=== PATIENT | female | born 1960 | race Hispanic/Latino ===

== ENCOUNTER → 2020-02-20 | Outpatient (CLI) | payer OTHER ==
[~2020-02-20] MED LIST: LEVAQUIN750 MG PO; LINZESS PO; TYLENOL # 31 EA PO; Z.0.CIPRO500 MG; Z.0.NORCO 5-325 TA1; Z.0.PHENERGAN25 M1; Z.0.SYNTHROID50 MCG PO; [UNRECOGNIZED DRUG - OTHER]
--- NOTE | 2020-02-20 13:19 | Diagnostic Imaging Report ---
CT of the chest, without contrast, 02/20/2020. History: History of smoking. Comparison: None available. Technique: Multidetector CT scanning of the chest was performed from the level of the apices to the upper abdomen without contrast. Coronal and sagittal multiplanar reformations were obtained. RADIATION DOSE: Total DLP: 489 mGy*cm Dose modulation, iterative reconstruction, and/or weight based adjustment of the mA/kV was utilized to reduce the radiation dose to as low as reasonably achievable. Discussion: Evaluation is limited without IV contrast. Chest: The heart, aorta, and pulmonary vessels are normal in size. The thyroid is unremarkable. Calcified right hilar lymph nodes are present. There is no acute mediastinal or axillary adenopathy. Linear opacities are present in the right middle lobe, lingula, and both lower lobes. There is no evidence of consolidation, suspicious nodule, or pleural effusion. Limited evaluation of the upper abdomen shows normal adrenal glands. Gastric pablo are noted. Bones and soft tissues: No acute abnormality. Mild degenerative changes are present throughout the thoracic spine. IMPRESSION: Findings of previous granulomatous disease with bilateral scattered atelectasis. No acute or suspicious pulmonary abnormality. Signed by: Joss Markham on 02/20/2020 1:16 PM
== END ==
LOC: CT 11:32
PROVIDERS: ATTEND Family Medicine
DX: F17.210 Nicotine dependence, cigarettes, uncomplicated (principal); J98.11 Atelectasis
CPT/HCPCS: 71250

== ENCOUNTER → 2021-05-22 | Day surgery (SDC) | payer BC, OTHER ==
[~2021-05-22] MED LIST changes: +ACETAMINOPHEN/CODEINE 300MG - 30MG TAB ONE; +BUPIVACAINE 0.25% 30ML SDV ONE; +FENTANYL CITRATE/PF 100MCG/2 ML INJ ONE; +HYDRALAZINE HCL 20 MG/ML VIAL ONE; +IBUPROFEN200 MG PO; +LINZESS290 MCG PO; +NABUMETONE500 MG PO; +SODIUM CHLORIDE 0.9% 50ML 100 ML ONE
[2021-05-22 09:58] VITALS: BP 152/89
== END | disposition home or self-care (01) ==
LOC: OR 05:41
PROVIDERS: ATTEND Specialist
DX: S83.221A Peripheral tear of medial meniscus, current injury, right knee, initial encounter (principal); M16.11 Unilateral primary osteoarthritis, right hip; M71.551 Other bursitis, not elsewhere classified, right hip; M17.11 Unilateral primary osteoarthritis, right knee; M23.42 Loose body in knee, left knee; K29.70 Gastritis, unspecified, without bleeding; E03.9 Hypothyroidism, unspecified; K44.9 Diaphragmatic hernia without obstruction or gangrene; F17.200 Nicotine dependence, unspecified, uncomplicated; Z88.8 Allergy status to other drugs, medicaments and biological substances; Z01.810 Encounter for preprocedural cardiovascular examination; Z01.812 Encounter for preprocedural laboratory examination; Z20.822 Contact with and (suspected) exposure to COVID-19
CPT/HCPCS: 29881; 29999; 93005; J0360; J0690; J3010; U0002

== ENCOUNTER 2021-07-02 06:59 | Outpatient (RCR) | payer BC ==
[~2021-07-02 06:59] MED LIST changes: -ACETAMINOPHEN/CODEINE 300MG - 30MG TAB ONE; -BUPIVACAINE 0.25% 30ML SDV ONE; -FENTANYL CITRATE/PF 100MCG/2 ML INJ ONE; -HYDRALAZINE HCL 20 MG/ML VIAL ONE; -SODIUM CHLORIDE 0.9% 50ML 100 ML ONE
== END 2021-07-04 ==
LOC: PT 06:59
PROVIDERS: ATTEND Specialist
DX: Z47.89 Encounter for other orthopedic aftercare (principal); S83.221D Peripheral tear of medial meniscus, current injury, right knee, subsequent encounter; M17.11 Unilateral primary osteoarthritis, right knee

== ENCOUNTER 2021-07-16 07:00 | Outpatient (RCR) | payer BC | END 2021-08-04 | LOC: PT 07:00 | PROVIDERS: ATTEND Specialist | DX: M17.11 Unilateral primary osteoarthritis, right knee (principal); S83.221D Peripheral tear of medial meniscus, current injury, right knee, subsequent encounter; Z47.89 Encounter for other orthopedic aftercare ==

== ENCOUNTER → 2021-09-20 | Outpatient (CLI) | payer BC | LOC: RAD 14:22 | PROVIDERS: ATTEND Family Medicine | DX: Z09 Encounter for follow-up examination after completed treatment for conditions other than malignant neoplasm (principal); J18.9 Pneumonia, unspecified organism | CPT/HCPCS: 71046 ==

== ENCOUNTER 2021-10-14 10:37 | Inpatient (IN) | payer BC ==
[~2021-10-14] VITALS: Ht 162.6 cm; Wt 72.6 kg
[2021-10-14] MEDS ORDERED: SODIUM CHLORIDE 0.9% 1000ML 1,000 ML IV STA (11:10)
[2021-10-14 11:42] LABS: CLARITY,URINE CLEAR (CLEAR); COLOR,URINE YELLOW (YELLOW)
[2021-10-14 11:43] LABS: BASOPHILS # (AUTO) 0.1 (0.0-0.1); BASOPHILS % 0.7 % (0.0-1.0); EOSINOPHILS % 0.3 % (0.0-6.0); HEMATOCRIT 36.7 % (34.2-44.1); HEMOGLOBIN 11.6 g/dL (12.0-16.0); LYMPHOCYTES # (AUTO) 1.4 (1.0-3.2); LYMPHOCYTES % 11.8 % (18.0-39.1); MEAN CORPUSCULAR HEMOGLOBIN 27.8 pg (28-32); MEAN CORPUSCULAR HGB CONC 31.6 g/dL (31-35); MONOCYTES # (AUTO) 1.4 (0.2-0.8); NEUTROPHILS # (AUTO) 8.5 (2.1-6.9); NEUTROPHILS % 73.6 % (38.7-80.0); PLATELET COUNT 466 x10e3/uL (140-360); RED BLOOD COUNT 4.17 x10e6/uL (3.6-5.1); RED CELL DISTRIBUTION WIDTH 15.2 % (11.7-14.4)
[2021-10-14 11:43] LABS: KETONES,URINE NEGATIVE (NEGATIVE); LEUKOCYTE ESTERASE ,URINE NEGATIVE (NEGATIVE); NITRITE,URINE NEGATIVE (NEGATIVE); PROTEIN,URINE DIPSTICK 1+ (NEGATIVE); URINE UROBILINOGEN 0.2 mg/dL (0.2 - 1)
[2021-10-14 11:53] LABS: INR 0.96; PROTHROMBIN TIME 13.5 seconds (11.9-14.5)
[2021-10-14 11:54] LABS: PARTIAL THROMBOPLASTIN TIME 38.3 seconds (23.8-35.5)
[2021-10-14 11:59] LABS: BACTERIA,URINE FEW /HPF; EPITHELIAL CELLS,URINE FEW /LPF; WBC,URINE (MAN) 0-5 /HPF (0-5)
[2021-10-14 12:00] LABS: CALCIUM OXALATE CRYSTALS,UR MODERATE (FEW)
[2021-10-14 12:05] LABS: ALBUMIN 2.6 g/dL (3.5-5.0); ALBUMIN/GLOBULIN RATIO 0.7 (0.8-2.0); CALCIUM 8.9 mg/dL (8.4-10.2); CREATINE KINASE MB 0.3 ng/mL (0-5.0); CREATININE, SERUM 0.68 mg/dL (0.57-1.11); MAGNESIUM 1.7 MG/DL (1.3-2.1)
[2021-10-14] MEDS ORDERED: IOPAMIDOL 370 MG/ML 200 ML INFUS..BTL INJ ONE (12:38)
[2021-10-14] MEDS ORDERED: SODIUM CHLORIDE 0.9% 50ML 50 ML ONE (12:38)
[2021-10-14] MEDS ORDERED: ACETAMINOPHEN 1000 MG/100 ML IV STA (13:40)
[2021-10-14] MEDS ORDERED: KCL 40MEQ/0.9% SOD CHL 1,000 ML IV ONE (13:45)
[2021-10-14] MEDS: PIPERACILLIN/TAZOBACTAM 3.375 GM in SODIUM CHLORIDE 0.9% 50ML 50 ML IV SCH ×2 (13:47→17:15)
[2021-10-14] MEDS ORDERED: ONDANSETRON HCL INJ 2MG/ML 2ML 2 MG/ML VIAL IV PRN ×2 (14:45→19:15)
[2021-10-14] MEDS ORDERED: KCL 20MEQ/.9 SOD CHL 1,000 ML IV ONE (14:45)
[2021-10-14] MEDS ORDERED: MIDAZOLAM HCL 2 MG/2 ML VIAL ONE (14:54)
[2021-10-14] MEDS ORDERED: FENTANYL CITRATE/PF 100MCG/2 ML INJ ONE (14:55)
[2021-10-14] MEDS ORDERED: LIDOCAINE HCL 1% LOCAL INJ 20 ML VIAL ONE (15:23)
[2021-10-14 16:40] VITALS: BP 106/66
[2021-10-14 16:50] VITALS: BP 106/66
[2021-10-14] MEDS: Morphine 2mg Syringe 2 MG/ML SYR IV PRN ×2 (17:00→20:14)
[2021-10-14] MEDS ORDERED: FERROUS SULFAT325 MG PO (17:57)
[2021-10-14] MEDS ORDERED: TYLENOL325 MG PO (17:57)
[2021-10-14] MEDS ORDERED: PANTOPRAZOLE SO40 MG PO (17:57)
[2021-10-14 19:51] VITALS: BP 118/62
[2021-10-14] MEDS ORDERED: POTASSIUM CHLORIDE 20 MEQ TAB CR PO ONE (20:30)
[2021-10-14] MEDS ORDERED: PIPERACILLIN/TAZOBACTAM 3.375 GM in SODIUM CHLORIDE 0.9% 50ML 50 ML IV SCH (22:00)
[2021-10-14 23:39] VITALS: BP 105/75
[2021-10-15] VITALS (7 sets, daily range): BP systolic 89–136; BP diastolic 54–64
[2021-10-15] MEDS: ACETAMINOPHEN 325 MG TAB PO PRN ×2 (00:34→18:30)
[2021-10-15] MEDS: Morphine 2mg Syringe 2 MG/ML SYR IV PRN ×7 (00:36→23:32)
[2021-10-15] MEDS: PIPERACILLIN/TAZOBACTAM 3.375 GM in SODIUM CHLORIDE 0.9% 50ML 50 ML IV SCH ×3 (01:20→16:48)
[2021-10-15 06:04] LABS: BASOPHILS # (AUTO) 0.1 (0.0-0.1); BASOPHILS % 0.6 % (0.0-1.0); EOSINOPHILS # (AUTO) 0.1 (0.0-0.4); EOSINOPHILS % 0.5 % (0.0-6.0); HEMATOCRIT 36.8 % (34.2-44.1); HEMOGLOBIN 11.2 g/dL (12.0-16.0); LYMPHOCYTES % 18.5 % (18.0-39.1); MEAN CORPUSCULAR HEMOGLOBIN 27.9 pg (28-32); MEAN CORPUSCULAR HGB CONC 30.4 g/dL (31-35); MEAN CORPUSCULAR VOLUME 91.8 fL (81-99); MONOCYTES # (AUTO) 1.5 (0.2-0.8); MONOCYTES % 13.8 % (4.4-11.3); NEUTROPHILS % 64.9 % (38.7-80.0); PLATELET COUNT 401 x10e3/uL (140-360); RED BLOOD COUNT 4.01 x10e6/uL (3.6-5.1); RED CELL DISTRIBUTION WIDTH 15.7 % (11.7-14.4)
[2021-10-15 06:48] LABS: ALBUMIN 2.4 g/dL (3.5-5.0); ALBUMIN/GLOBULIN RATIO 0.7 (0.8-2.0); ALKALINE PHOSPHATASE 82 IU/L (40-150); ANION GAP 13.7 mmol/L (8-16); BLOOD UREA NITROGEN < 5 mg/dL (7-26); CALCIUM 8.9 mg/dL (8.4-10.2); CARBON DIOXIDE 24 mmol/L (22-29); CHLORIDE 102 mmol/L (98-107); CREATININE, SERUM 0.63 mg/dL (0.57-1.11); EST GLOMERULAR FILTRATION RATE 97 ML/MIN (60-); GLUCOSE 91 mg/dL (74-118); POTASSIUM 3.7 mmol/L (3.5-5.1); SODIUM 136 mmol/L (136-145)
[2021-10-15 06:50] LABS: ALANINE AMINOTRANSFERASE < 6 IU/L (0-55); BUN/CREATININE RATIO 8 (6-25)
[2021-10-15 07:37] LABS: MAGNESIUM 1.8 MG/DL (1.3-2.1)
[2021-10-15 07:59] LABS: THYROID STIMULATING HORMONE 0.77 uIU/mL (0.350-4.940)
[2021-10-15] MEDS: HYDROCODONE/APAP 5MG-325MG TAB PO PRN ×2 (12:00→18:00)
[2021-10-15] MEDS: ENOXAPARIN SOD INJ 40 MG/0.4 ML SYR SC SCH (16:48)
[2021-10-16] VITALS (7 sets, daily range): BP systolic 97–106; BP diastolic 57–68
[2021-10-16] MEDS: PIPERACILLIN/TAZOBACTAM 3.375 GM in SODIUM CHLORIDE 0.9% 50ML 50 ML IV SCH ×3 (02:08→17:58)
[2021-10-16] MEDS ORDERED: SODIUM CHLORIDE 0.9% 250ML 250 ML ONE (02:08)
[2021-10-16] MEDS: HYDROCODONE/APAP 5MG-325MG TAB PO PRN ×2 (02:09→13:55)
[2021-10-16 05:31] LABS: BASOPHILS # (AUTO) 0.1 (0.0-0.1); BASOPHILS % 0.5 % (0.0-1.0); EOSINOPHILS # (AUTO) 0.1 (0.0-0.4); EOSINOPHILS % 0.7 % (0.0-6.0); HEMATOCRIT 32.6 % (34.2-44.1); HEMOGLOBIN 10.5 g/dL (12.0-16.0); LYMPHOCYTES # (AUTO) 1.5 (1.0-3.2); LYMPHOCYTES % 11.6 % (18.0-39.1); MEAN CORPUSCULAR HGB CONC 32.2 g/dL (31-35); MEAN CORPUSCULAR VOLUME 86.9 fL (81-99); MONOCYTES # (AUTO) 1.5 (0.2-0.8); MONOCYTES % 11.2 % (4.4-11.3); NEUTROPHILS # (AUTO) 9.8 (2.1-6.9); NEUTROPHILS % 74.1 % (38.7-80.0); PLATELET COUNT 433 x10e3/uL (140-360); RED BLOOD COUNT 3.75 x10e6/uL (3.6-5.1); RED CELL DISTRIBUTION WIDTH 15.3 % (11.7-14.4)
[2021-10-16 06:14] LABS: ANION GAP 10.4 mmol/L (8-16); CALCIUM 8.7 mg/dL (8.4-10.2); CREATININE, SERUM 0.58 mg/dL (0.57-1.11); POTASSIUM 3.4 mmol/L (3.5-5.1)
[2021-10-16] MEDS: ACETAMINOPHEN 325 MG TAB PO PRN (06:37)
[2021-10-16] MEDS ORDERED: POTASSIUM BICARBONATE/CIT AC 20 MEQ TABLET.EFF PO ONE (14:00)
[2021-10-16] MEDS: ENOXAPARIN SOD INJ 40 MG/0.4 ML SYR SC SCH (16:32)
[2021-10-16] MEDS: FERROUS SULFATE 325 MG TAB PO SCH (16:32)
[2021-10-16] MEDS: Morphine 2mg Syringe 2 MG/ML SYR IV PRN ×2 (18:24→21:50)
[2021-10-17] VITALS (7 sets, daily range): BP systolic 87–109; BP diastolic 55–74
[2021-10-17] MEDS: HYDROCODONE/APAP 5MG-325MG TAB PO PRN (00:19)
[2021-10-17] MEDS: PIPERACILLIN/TAZOBACTAM 3.375 GM in SODIUM CHLORIDE 0.9% 50ML 50 ML IV SCH ×3 (01:35→17:31)
[2021-10-17] MEDS: LEVOTHYROXINE SODIUM 75 MCG TAB PO SCH (05:52)
[2021-10-17 06:07] LABS: BASOPHILS # (AUTO) 0.1 (0.0-0.1); BASOPHILS % 0.5 % (0.0-1.0); EOSINOPHILS # (AUTO) 0.2 (0.0-0.4); EOSINOPHILS % 1.7 % (0.0-6.0); HEMATOCRIT 31.9 % (34.2-44.1); LYMPHOCYTES # (AUTO) 1.8 (1.0-3.2); LYMPHOCYTES % 17.2 % (18.0-39.1); MEAN CORPUSCULAR HEMOGLOBIN 27.2 pg (28-32); MEAN CORPUSCULAR HGB CONC 31.3 g/dL (31-35); MEAN CORPUSCULAR VOLUME 86.7 fL (81-99); MONOCYTES # (AUTO) 1.2 (0.2-0.8); MONOCYTES % 11.6 % (4.4-11.3); NEUTROPHILS # (AUTO) 6.8 (2.1-6.9); NEUTROPHILS % 66.1 % (38.7-80.0); PLATELET COUNT 424 x10e3/uL (140-360); RED BLOOD COUNT 3.68 x10e6/uL (3.6-5.1); RED CELL DISTRIBUTION WIDTH 15.2 % (11.7-14.4)
[2021-10-17] MEDS: FERROUS SULFATE 325 MG TAB PO SCH ×2 (08:40→17:31)
[2021-10-17] MEDS: Morphine 2mg Syringe 2 MG/ML SYR IV PRN (10:37)
[2021-10-17] MEDS ORDERED: DIATRIZOATE MEGL/DIATRIZOA SOD 120 ML BTL PO ONE (14:50)
[2021-10-17] MEDS: ENOXAPARIN SOD INJ 40 MG/0.4 ML SYR SC SCH (17:31)
[2021-10-17] MEDS: CEFTRIAXONE 1 GM in SODIUM CHLORIDE 0.9% 50ML 50 ML IV SCH (21:58)
[2021-10-18] VITALS (8 sets, daily range): BP systolic 92–112; BP diastolic 57–74
[2021-10-18] MEDS: LEVOTHYROXINE SODIUM 75 MCG TAB PO SCH (05:53)
[2021-10-18] MEDS: FERROUS SULFATE 325 MG TAB PO SCH ×2 (09:24→16:15)
[2021-10-18] MEDS ORDERED: SODIUM CHLORIDE 0.9% 50ML 50 ML ONE (14:37)
[2021-10-18] MEDS ORDERED: IOPAMIDOL 370 MG/ML 200 ML INFUS..BTL INJ ONE (14:37)
[2021-10-18] MEDS: ENOXAPARIN SOD INJ 40 MG/0.4 ML SYR SC SCH (16:15)
[2021-10-18] MEDS: Morphine 2mg Syringe 2 MG/ML SYR IV PRN ×2 (18:15→22:30)
[2021-10-18] MEDS: FLUCONAZOLE 100 MG TAB PO SCH (21:05)
[2021-10-18] MEDS: CEFTRIAXONE 1 GM in SODIUM CHLORIDE 0.9% 50ML 50 ML IV SCH (21:05)
[2021-10-19] VITALS (9 sets, daily range): BP systolic 98–117; BP diastolic 57–72
[2021-10-19] MEDS: HYDROCODONE/APAP 5MG-325MG TAB PO PRN ×2 (00:07→12:20)
[2021-10-19] MEDS ORDERED: SODIUM CHLORIDE 0.9% 50ML 50 ML ONE (05:36)
[2021-10-19] MEDS ORDERED: IOPAMIDOL 370 MG/ML 200 ML INFUS..BTL INJ ONE (05:36)
[2021-10-19] MEDS: LEVOTHYROXINE SODIUM 75 MCG TAB PO SCH (06:00)
[2021-10-19 07:10] LABS: ALBUMIN 2.1 g/dL (3.5-5.0); ALBUMIN/GLOBULIN RATIO 0.5 (0.8-2.0); ALKALINE PHOSPHATASE 63 IU/L (40-150); BLOOD UREA NITROGEN 5 mg/dL (7-26); BUN/CREATININE RATIO 9 (6-25); CALCIUM 8.8 mg/dL (8.4-10.2); CARBON DIOXIDE 33 mmol/L (22-29); CHLORIDE 99 mmol/L (98-107); CREATININE, SERUM 0.57 mg/dL (0.57-1.11); EST GLOMERULAR FILTRATION RATE 109 ML/MIN (60-); GLUCOSE 82 mg/dL (74-118); SODIUM 137 mmol/L (136-145)
[2021-10-19 07:12] LABS: ALANINE AMINOTRANSFERASE < 6 IU/L (0-55)
[2021-10-19] MEDS: FLUCONAZOLE 100 MG TAB PO SCH (09:00)
[2021-10-19] MEDS: FERROUS SULFATE 325 MG TAB PO SCH ×2 (09:00→16:52)
[2021-10-19] MEDS: ENOXAPARIN SOD INJ 40 MG/0.4 ML SYR SC SCH (16:52)
[2021-10-19] MEDS: CEFTRIAXONE 1 GM in SODIUM CHLORIDE 0.9% 50ML 50 ML IV SCH (21:20)
[2021-10-19] MEDS: Morphine 2mg Syringe 2 MG/ML SYR IV PRN (21:20)
[2021-10-20] MEDS: HYDROCODONE/APAP 5MG-325MG TAB PO PRN ×2 (01:04→15:38)
[2021-10-20] MEDS: LEVOTHYROXINE SODIUM 75 MCG TAB PO SCH (05:14)
[2021-10-20] MEDS: Morphine 2mg Syringe 2 MG/ML SYR IV PRN ×3 (05:40→22:31)
[2021-10-20 06:44] VITALS: BP 101/60
[2021-10-20 07:54] VITALS: BP 84/61
[2021-10-20] MEDS: FERROUS SULFATE 325 MG TAB PO SCH ×2 (09:00→16:45)
[2021-10-20] MEDS: FLUCONAZOLE 100 MG TAB PO SCH (09:00)
[2021-10-20 11:57] VITALS: BP 105/64
[2021-10-20 15:54] VITALS: BP 97/55
[2021-10-20] MEDS: ENOXAPARIN SOD INJ 40 MG/0.4 ML SYR SC SCH (16:45)
[2021-10-20 20:00] VITALS: BP 98/56
[2021-10-20] MEDS: CEFTRIAXONE 1 GM in SODIUM CHLORIDE 0.9% 50ML 50 ML IV SCH (21:36)
[2021-10-20] MEDS ORDERED: IOPAMIDOL 370 MG/ML 200 ML INFUS..BTL INJ ONE (23:21)
[2021-10-20] MEDS ORDERED: SODIUM CHLORIDE 0.9% 50ML 50 ML ONE (23:21)
[2021-10-21] VITALS (8 sets, daily range): BP systolic 93–112; BP diastolic 54–66
[2021-10-21] MEDS: HYDROCODONE/APAP 5MG-325MG TAB PO PRN ×3 (00:21→21:36)
[2021-10-21] MEDS: LEVOTHYROXINE SODIUM 75 MCG TAB PO SCH (05:38)
[2021-10-21] MEDS: Morphine 2mg Syringe 2 MG/ML SYR IV PRN (05:43)
[2021-10-21] MEDS: FLUCONAZOLE 100 MG TAB PO SCH (08:27)
[2021-10-21] MEDS: FERROUS SULFATE 325 MG TAB PO SCH ×2 (08:27→16:46)
[2021-10-21] MEDS: CEFTRIAXONE 1 GM in SODIUM CHLORIDE 0.9% 50ML 50 ML IV SCH (21:19)
[2021-10-22] VITALS (8 sets, daily range): BP systolic 93–111; BP diastolic 52–72
[2021-10-22] MEDS: LEVOTHYROXINE SODIUM 75 MCG TAB PO SCH (04:48)
[2021-10-22] MEDS ORDERED: LIDOCAINE HCL 1% LOCAL INJ 20 ML VIAL ONE (09:19)
[2021-10-22] MEDS ORDERED: IOPAMIDOL 300MG/ML 100 ML INFUS..BTL IV ONE (10:07)
[2021-10-22] MEDS ORDERED: MIDAZOLAM HCL 2 MG/2 ML VIAL ONE (10:32)
[2021-10-22] MEDS ORDERED: FENTANYL CITRATE/PF 100MCG/2 ML INJ ONE (10:32)
[2021-10-22] MEDS: FERROUS SULFATE 325 MG TAB PO SCH ×2 (11:00→17:00)
[2021-10-22] MEDS: FLUCONAZOLE 100 MG TAB PO SCH (11:00)
[2021-10-22] MEDS: HYDROCODONE/APAP 5MG-325MG TAB PO PRN ×3 (11:03→23:00)
[2021-10-22] MEDS: CEFTRIAXONE 1 GM in SODIUM CHLORIDE 0.9% 50ML 50 ML IV SCH (21:15)
[2021-10-23 00:09] VITALS: BP 100/58
[2021-10-23 04:56] VITALS: BP 97/66
[2021-10-23 05:03] LABS: BASOPHILS # (AUTO) 0.1 (0.0-0.1); BASOPHILS % 0.5 % (0.0-1.0); EOSINOPHILS # (AUTO) 0.2 (0.0-0.4); EOSINOPHILS % 2.4 % (0.0-6.0); HEMATOCRIT 31.6 % (34.2-44.1); HEMOGLOBIN 10.1 g/dL (12.0-16.0); LYMPHOCYTES # (AUTO) 1.8 (1.0-3.2); LYMPHOCYTES % 17.8 % (18.0-39.1); MEAN CORPUSCULAR HEMOGLOBIN 27.6 pg (28-32); MEAN CORPUSCULAR VOLUME 86.3 fL (81-99); MONOCYTES % 9.8 % (4.4-11.3); NEUTROPHILS # (AUTO) 6.9 (2.1-6.9); NEUTROPHILS % 68.7 % (38.7-80.0); PLATELET COUNT 642 x10e3/uL (140-360); RED BLOOD COUNT 3.66 x10e6/uL (3.6-5.1); RED CELL DISTRIBUTION WIDTH 15.6 % (11.7-14.4)
[2021-10-23 05:50] LABS: ANION GAP 14.3 mmol/L (8-16); CALCIUM 8.7 mg/dL (8.4-10.2); CREATININE, SERUM 0.64 mg/dL (0.57-1.11); POTASSIUM 4.3 mmol/L (3.5-5.1)
[2021-10-23] MEDS: LEVOTHYROXINE SODIUM 75 MCG TAB PO SCH (06:04)
[2021-10-23] MEDS: HYDROCODONE/APAP 5MG-325MG TAB PO PRN ×2 (06:05→06:43)
[2021-10-23 07:56] VITALS: BP 96/62
[2021-10-23 08:32] VITALS: BP 96/62
[2021-10-23] MEDS: FLUCONAZOLE 100 MG TAB PO SCH (09:00)
[2021-10-23] MEDS: FERROUS SULFATE 325 MG TAB PO SCH ×2 (09:00→17:09)
[2021-10-23 11:47] VITALS: BP 97/62
[2021-10-23] MEDS ORDERED: ONDANSETRON HCL 4 MG ORAL DISINTEGRATING TAB PO PRN (13:00)
[2021-10-23 16:23] VITALS: BP 101/66
== END 2021-10-23 18:22 | disposition home or self-care (01) | DRG 862 ==
LOC: ER 11:11 → ERHOLD 15:48 → MED/SURG2 16:32
PROVIDERS: ADMIT Internal Medicine; ATTEND Internal Medicine
PROC: 0W9J30Z Drainage of Pelvic Cavity with Drainage Device, Percutaneous Approach (ICD-10-PCS; principal; 2021-10-14)
PROC: 0W9J30Z Drainage of Pelvic Cavity with Drainage Device, Percutaneous Approach (ICD-10-PCS; 2021-10-22)
DX: T81.49XA Infection following a procedure, other surgical site, initial encounter (principal); A41.9 Sepsis, unspecified organism; B37.89 Other sites of candidiasis; K68.11 Postprocedural retroperitoneal abscess; E87.6 Hypokalemia; E03.9 Hypothyroidism, unspecified; D50.9 Iron deficiency anemia, unspecified; B95.0 Streptococcus, group A, as the cause of diseases classified elsewhere; Z98.84 Bariatric surgery status
CPT/HCPCS: 36415; 49406; 49423; 71045; 74177; 74246; 74470; 76942; 77012; 80048; 80053; 81001; 82550; 82553; 83605; 83690; 83735; 84443; 84484; 85025; 85610; 85730; 87040; 87070; 87086; 87205; 93005; 94799; 96360; 99284; J0696; J1650; J2001; J2250; J2270; J2543; J3010; J7030; J7050; Q9963; Q9967; U0002